=== PATIENT | female | born 1955 | race Caucasian/White ===

== ENCOUNTER 2016-04-15 23:05 | Emergency (ER) | payer BC ==
--- NOTE | 2016-04-15 23:30 | ED.PDOC ---
History of Present Illness - General Chief Complaint: Fever Stated Complaint: flu pain Time Seen by Provider: 04/15/16 23:12 Source: patient, RN notes reviewed Exam Limitations: no limitations - History of Present Illness Initial Comments: She stated had nasal congestion and dry cough which started yesterday then with flu like symptoms tonight. Timing/Duration: 24 hours Severity: moderate Improving Factors: nothing Worsening Factors: nothing Allergies/Adverse Reactions: Allergies NO KNOWN ALLERGY Allergy (Verified 04/15/16 23:12) Home Medications: Ambulatory Orders Albuterol Inhaler [Ventolin Hfa Inhaler] 108 mcg IN QID PRN #1 inh 04/16/16 Azithromycin [Zithromax Z-Almas] 1 ea PO DAILY #1 pack 04/16/16 Benzonatate Perles [Tessalon Perles] 200 mg PO BID #30 cap 04/16/16 Review of Systems - Review of Systems Constitutional: States: see HPI, other - flu like symptoms EENTM: States: nose congestion Respiratory: States: cough Cardiology: States: no symptoms reported Gastrointestinal/Abdominal: States: no symptoms reported Genitourinary: States: no symptoms reported Musculoskeletal: States: no symptoms reported Skin: States: no symptoms reported Neurological: States: no symptoms reported Endocrine: States: no symptoms reported Hematologic/Lymphatic: States: no symptoms reported Past Medical History (General) - Patient Medical History Hx Seizures: No Hx Dementia: No Hx Asthma: No Hx of COPD: Yes Hx Cardiac Disorders: No Hx Congestive Heart Failure: No Hx Hypertension: No Hx Diabetes: No Surgical History: other - hysterectomy - Vaccination History Hx Influenza Vaccination: No Hx Pneumococcal Vaccination: No - Social History Hx Tobacco Use: Yes Cigarettes Packs Per Day: 2 - Activities of Daily Living Patient Lives Alone: No - family Family Medical History - Family History Mother Family History: Unknown Hx Family Stroke: Yes - dad Hx Cardiac Disease: Yes - mom Physical Exam - Physical Exam General Appearance: Alert, No apparent distress Ears, Nose, Throat: hearing grossly normal, normal ENT inspection, nasal congestion Neck: non-tender, full range of motion, supple, normal inspection Respiratory: chest non-tender, no respiratory distress, no accessory muscle use , wheezing Cardiovascular/Chest: regular rate, rhythm, no gallop, no JVD, no murmur Gastrointestinal/Abdominal: normal bowel sounds, non tender, soft, no organomegaly Back Exam: normal inspection, no CVA tenderness, no vertebral tenderness Neurologic: alert, normal mood/affect, oriented x 3 Skin Exam: normal color, warm/dry Lymphatic: no adenopathy Departure - Departure Clinical Impression: Bronchitis, acute Qualifiers: Bronchitis organism: unspecified organism Qualifier Code: (J20.9) Acute bronchitis, unspecified Time of Disposition: 00:52 Disposition: Discharge to Home or Self Care Condition: Good Departure Forms: ED Discharge - Pt. Copy, Patient Portal Self Enrollment Instructions: How to Quit Smoking, Reasons to Quit Smoking, Nicotine Replacement Therapy for Smoking Cessation During Prescriptions: Benzonatate Perles [Tessalon Perles] 200 mg PO BID #30 cap Albuterol Inhaler [Ventolin Hfa Inhaler] 108 mcg IN QID PRN #1 inh PRN Reason: Wheezing Azithromycin [Zithromax Z-Almas] 1 ea PO DAILY #1 pack Home Medications: Ambulatory Orders Albuterol Inhaler [Ventolin Hfa Inhaler] 108 mcg IN QID PRN #1 inh 04/16/16 Azithromycin [Zithromax Z-Almas] 1 ea PO DAILY #1 pack 04/16/16 Benzonatate Perles [Tessalon Perles] 200 mg PO BID #30 cap 04/16/16
--- NOTE | 2016-04-15 23:56 | RAD ---
PROCEDURE: Chest,2 Views CLINICAL HISTORY: cough INDICATION: Same as above COMPARISON: 05/14/2015 TECHNIQUE: PA and and lateral chest radiographs were obtained. FINDINGS: There are underlying changes of COPD There are no discrete airspace infiltrates, pneumothoraces or pleural effusions. The pulmonary vascularity is normal The cardiomediastinal silhouette is unremarkable for patient's age and sex. IMPRESSION: There is no acute pleural-parenchymal process seen in the imaged lung [place]. Underlying changes of COPD. Place of interpretation: [facility]. Electronically signed by: Olu Del Valle MD 04/15/2016 11:55 PM COMPOUND COATING MACHINE OFFBEARER
[2016-04-16] MEDS ORDERED: IPRATROPIUM/ALBUTEROL 3 ML VIAL NEB ONE (00:17)
[2016-04-16] MEDS ORDERED: AZITHROMYCIN 250 MG TAB PO ONE (00:51)
[2016-04-16] MEDS ORDERED: BENZONATATE PERLES 100 MG CAP PO ONE (00:51)
[2016-04-16] MEDS ORDERED: diphenhydrAMINE HCL 25 MG CAP PO ONE (00:51)
[2016-04-16 01:24] VITALS: O2SAT 95
[2016-04-16 01:26] VITALS: BP 155/93; TEMP 98.2
--- NOTE | 2016-05-03 23:57 | RAD ---
PROCEDURE: Chest,2 Views CLINICAL HISTORY: cough INDICATION: Same as above COMPARISON: 05/14/2015 TECHNIQUE: PA and and lateral chest radiographs were obtained. FINDINGS: There are underlying changes of COPD There are no discrete airspace infiltrates, pneumothoraces or pleural effusions. The pulmonary vascularity is normal The cardiomediastinal silhouette is unremarkable for patient's age and sex. IMPRESSION: There is no acute pleural-parenchymal process seen in the imaged lung [place]. Underlying changes of COPD. Place of interpretation: [facility]. Electronically signed by: Olu Del Valle MD 04/15/2016 11:55 PM COMPRESSION MOLDING MACHINE SETTER
== END 2016-04-16 01:23 | disposition home or self-care (01) ==
LOC: ER 23:05
DX: J20.9 Acute bronchitis, unspecified (principal); J44.9 Chronic obstructive pulmonary disease, unspecified; Z82.3 Family history of stroke; Z79.899 Other long term (current) drug therapy; F17.210 Nicotine dependence, cigarettes, uncomplicated
CPT/HCPCS: 71020; 87502; Q0144; Q0163

== ENCOUNTER 2016-11-24 00:29 | Emergency (ER) | payer BC ==
[2016-11-24] MEDS ORDERED: ONDANSETRON INJ 4 MG/2 ML VIAL IV ONE (00:32)
[2016-11-24] MEDS ORDERED: HYDROmorphone HCL INJ 2 MG/ML VIAL IV ONE ×2 (00:32→00:59)
--- NOTE | 2016-11-24 00:36 | ED.PDOC ---
History of Present Illness - General Chief Complaint: Lower Extremity Injury Stated Complaint: R lower leg injury Time Seen by Provider: 11/24/16 00:32 Source: patient, RN notes reviewed, Vital Signs reviewed, EMS Exam Limitations: no limitations - History of Present Illness Initial Comments: Patient comes in with pain and deformity R lower tib/fib/ankle. She was playing with her dog and slipped on a rug and fell. [place] a crack and sudden pain. Unable to get up/weight bear on her RLE. Denies any other injuries. Occurred: just prior to arrival Pain - Lower Extremity: severe: Right Ball, Right Ankle Method of Injury: fell Improving Factors: immobilization Worsening Factors: movement Allergies/Adverse Reactions: Allergies NO KNOWN ALLERGY Allergy (Verified 04/15/16 23:12) Home Medications: Ambulatory Orders NK [NK] 11/24/16 Review of Systems - Review of Systems Constitutional: States: no symptoms reported Respiratory: States: no symptoms reported Cardiology: States: no symptoms reported Gastrointestinal/Abdominal: States: no symptoms reported Musculoskeletal: States: see HPI Skin: States: no symptoms reported Neurological: States: numbness - toes of R foot All other Systems: No Change from Baseline Past Medical History (General) - Patient Medical History Hx Seizures: No Hx Dementia: No Hx Asthma: No Hx of COPD: Yes Hx Cardiac Disorders: No Hx Congestive Heart Failure: No Hx Hypertension: No Hx Diabetes: No - Vaccination History Hx Tetanus, Diphtheria Vaccination: No Hx Influenza Vaccination: No Hx Pneumococcal Vaccination: No - Social History Hx Tobacco Use: Yes Hx Alcohol Use: No Hx Substance Use: No Hx Substance Use Treatment: No Hx Depression: No - Female History Patient : No Family Medical History - Family History Mother Family History: Unknown Hx Family Stroke: Yes - dad Hx Cardiac Disease: Yes - mom Physical Exam - Physical Exam General Appearance: Alert, Well Developed, Well Groomed, Well Hydrated, Well Nourished, Other - In obvious pain Neck: supple, normal inspection Cardiovascular/Respiratory: regular rate, rhythm, no M/R/G, normal peripheral pulses - R foot: 2+ DP and PT pulses, normal breath sounds, no respiratory distress Thigh/Hip: normal inspection, non-tender, no evidence of injury Leg: bone tenderness - R lower tibia, deformity, limited ROM, pain, swelling Knee: normal inspection, non-tender, no evidence of injury Ankle: deformity - R distal tibia/ankle, limited ROM, pain, soft tissue tenderness, swelling Foot: normal inspection, non-tender, no evidence of injury Neuro/Tendon: normal motor functions, normal tendon functions, sensory deficit - decreased sensation to light touch all toes. Mental Status: alert, oriented x 3 Skin: normal color, warm/dry Progress - Progress Progress: 11/24/16 01:08 Pt now c/o pain that feels like a gas bubble in her L lower chest. + tender to palpation. No LUQ abd tenderness. Mother in her early 60's due to ME. Will get EKG. Still having pain after Dilaudid 1mg IV. Will give another 0.5mg. 11/24/16 01:33 Attempted to get a hold of Monique Vasquez. No response after 30 minutes. Will transfer to [facility] in [place]. Called Transfer line. Awaiting call back from Ortho. 11/24/16 01:[address] Davis who accepted patient in transfer. - Results/Orders Results/Orders: Laboratory Tests 11/24/16 11/24/16 11/24/16 00:50 00:50 01:10 WBC 12.6 H RBC 4.76 Hgb 14.4 Hct 43.0 MCV 90.3 MCH 30.3 MCHC 33.5 RDW 13.5 Plt Count 198 MPV 8.3 Absolute Neuts (auto) 8.00 H Absolute Lymphs (auto) 3.60 H Absolute Monos (auto) 0.60 Absolute Eos (auto) 0.30 Absolute Basos (auto) 0.10 Neutrophils % 63.5 Lymphocytes % 28.4 Monocytes % 4.6 Eosinophils % 2.7 Basophils % 0.8 Sodium 139 Potassium 3.8 Chloride 105 Carbon Dioxide 27 Anion Gap 10.8 L BUN 17 Creatinine 0.56 L BUN/Creatinine Ratio 30.4 H Random Glucose 160 H Serum Osmolality 282.5 Calcium 9.3 Total Bilirubin 0.3 AST 18 ALT 14 Alkaline Phosphatase 62 Creatine Kinase 93 CK-MB (CK-2) 3.1 CK-MB (CK-2) % Not Reportable Troponin I 0.04 Serum Total Protein 6.9 Albumin 3.8 Globulin 3.1 Albumin/Globulin Ratio 1.2 - EKG/XRAY/CT EKG: Sinus, nonspecific ST T wave Chg Comments: Rate 87, no old EKG for comparison Xray Comments: R Tib/Fib: Displaced and comminuted fractures of distal tibia & fibula -Rad Departure - Departure Clinical Impression: Tibia/fibula fracture, shaft Qualifiers: Encounter type: initial encounter Fracture type: closed Laterality: right Qualified Code(s): S82.201A - Unspecified fracture of shaft of right tibia, initial encounter for closed fracture; S82.401A - Unspecified fracture of shaft of right fibula, initial encounter for closed fracture Time of Disposition: 02:13 Disposition: Transfer to Hospital Condition: Good Referrals: Coy Simpson MD [Primary Care Provider] - 1-2 Weeks Home Medications: Ambulatory Orders NK [NK] 11/24/16 Transfer to Outside Facility - Transfer Information Accepting Provider:: Dr. Davis Accepting Facility: [facility] Reason for Transfer: required specialist not available
[2016-11-24] MEDS ORDERED: NICOTINE PATCH 14 MG TD ONE (00:59)
--- NOTE | 2016-11-24 01:07 | RAD ---
EXAM: Two view(s) of the right ankle. INDICATION: Pain. COMPARISON: None. FINDINGS: The bones are demineralized. There are displaced and comminuted fractures involving the distal tibia and fibula. The tibiotalar joint appears intact. There is soft tissue swelling around the fracture site. IMPRESSION: Displaced and comminuted fractures involving the distal tibia and fibula Electronically signed by: Dayo Euceda MD 11/24/2016 1:05 AM CDT Workstation: [id number]
--- NOTE | 2016-11-24 01:07 | RAD ---
EXAM: Two view(s) of the right tibia-fibula. INDICATION: Pain. COMPARISON: None. FINDINGS: There are displaced and comminuted fractures involving the distal tibia and fibula. There is soft tissue swelling around the fracture sites. IMPRESSION: Displaced and comminuted fractures involving the distal tibia and fibula. Electronically signed by: Dayo Euceda MD 11/24/2016 1:06 AM CDT Workstation: [id number]
[2016-11-24] MEDS ORDERED: SODIUM CHLORIDE 0.9% 1000ML 1,000 ML IVS ONE (01:31)
[2016-11-24] MEDS ORDERED: fentaNYL CITRATE INJ 50 MCG/ML AMP IV ONE (01:50)
[2016-11-24 02:28] VITALS: BP 174/92; TEMP 98.2; O2SAT 96
== END 2016-11-24 02:27 | disposition short-term general hospital (02) ==
LOC: ER 00:29
DX: S82.201A Unspecified fracture of shaft of right tibia, initial encounter for closed fracture (principal); S82.401A Unspecified fracture of shaft of right fibula, initial encounter for closed fracture; J44.9 Chronic obstructive pulmonary disease, unspecified; R07.9 Chest pain, unspecified; Z82.49 Family history of ischemic heart disease and other diseases of the circulatory system; W01.0XXA Fall on same level from slipping, tripping and stumbling without subsequent striking against object, initial encounter; Y92.9 Unspecified place or not applicable
CPT/HCPCS: 36415; 73590; 73600; 80053; 82550; 82553; 84484; 85025; 93005; J1170; J2405; J3010; J7030

== ENCOUNTER 2017-07-04 06:57 | Emergency (ER) | payer BC ==
[2017-07-04 07:39] VITALS: TEMP 98.4
--- NOTE | 2017-07-04 07:47 | ED.PDOC ---
History of Present Illness - General Chief Complaint: Problem Stated Complaint: left flank pain Time Seen by Provider: 07/04/17 07:31 Source: patient Exam Limitations: no limitations - History of Present Illness Initial Comments: Celsa Abraham 61 y/o female stated that she had left sided burning abdominal pain on and off for the last one week not related to eating no nausea vomiting had regular BM,no diarrhea or noticed blood in urine.Stated had kind stone surgery on her left side 3 years ago.Denies fever/chills.Symptoms getting constant decided to get checked. Timing/Duration: week Quality: burning Radiation: left flank Activites at Onset: none Prior abdominal problems: none Sexual intercourse history: single partner Improving Factors: nothing Worsening Factors: nothing Allergies/Adverse Reactions: Allergies NO KNOWN ALLERGY Allergy (Verified 04/15/16 23:12) Home Medications: Ambulatory Orders Acetamin W/Cod #3 Tab [Tylenol w/CODEINE #3] 1 ea PO Q4HR PRN #14 tab 07/04/17 Sulfa/Trimeth 800/160 (Ds) Tab [Bactrim DS] 1 tablet PO BID #14 tab 07/04/17 Tamsulosin [Flomax] 0.4 mg PO QDPC #7 cap 07/04/17 Review of Systems - Review of Systems Constitutional: States: no symptoms reported EENTM: States: no symptoms reported Respiratory: States: no symptoms reported Cardiology: States: no symptoms reported Gastrointestinal/Abdominal: States: no symptoms reported Genitourinary: States: see HPI All other Systems: Reviewed and Negative, No Change from Baseline Past Medical History (General) - Patient Medical History Hx Seizures: No Hx Stroke: No Hx Dementia: No Hx Asthma: Yes Hx of COPD: Yes Hx Cardiac Disorders: No Hx Congestive Heart Failure: No Hx Hypertension: No Hx Diabetes: No Hx Gastroesophageal Reflux: No Hx Renal Disease: Yes Surgical History: other - hysterectomy - Vaccination History Hx Tetanus, Diphtheria Vaccination: No Hx Influenza Vaccination: No Hx Pneumococcal Vaccination: No - Social History Hx Tobacco Use: Yes Hx Alcohol Use: No Hx Substance Use: No Hx Substance Use Treatment: No Hx Depression: No Hx Physical Abuse: No Hx Emotional Abuse: No - Activities of Daily Living Grooming Ability: Independent Eating (Feeding) Ability: Independent Toileting Ability: Independent - Female History Patient : No Family Medical History - Family History Mother Family History: Unknown Hx Family Stroke: Yes - dad Hx Cardiac Disease: Yes - mom Physical Exam - Physical Exam General Appearance: Alert, Comfortable, No apparent distress Eyes, Ears, Nose, Throat Exam: normal ENT inspection, TMs normal Neck: non-tender, supple Cardiovascular/Respiratory: regular rate, rhythm, no M/R/G, normal peripheral pulses, normal breath sounds Gastrointestinal/Abdominal: normal bowel sounds, non tender, soft, no organomegaly Back Exam: normal inspection, no CVA tenderness, no vertebral tenderness Extremity: no pedal edema, no calf tenderness Neurologic: alert, oriented x 3 Progress - Progress Progress: 07/04/17 07:51 Vital Signs - 8 hr 07/04/17 07:12 Temperature 98.4 F Pulse Rate [ 126 H left brachial] Respiratory 18 Rate Blood Pressure 148/103 [left brachial] O2 Sat by Pulse 92 L Oximetry - Results/Orders Results/Orders: 07/04/17 08:08 IV Care:Saline Lock per Protoc QSHIFT 07/04/17 08:41 cefTRIAXone SODIUM [Rocephin] 1 gm Sodium Chl 0.9% 50Ml Min-Bag+ [NS 50ml MINI -BAG+] 50 ml IVPB ONCE 07/04/17 08:45 Be Our Guest Tray (BOG) ONCE Laboratory Results - last 24 hr 07/04/17 07/04/17 07/04/17 07:20 08:18 08:18 WBC 12.4 H RBC 5.01 Hgb 14.8 Hct 43.9 MCV 87.5 MCH 29.5 MCHC 33.8 RDW 14.3 Plt Count 178 MPV 8.1 Absolute Neuts (auto) 9.50 H Absolute Lymphs (auto) 1.60 Absolute Monos (auto) 0.90 H Absolute Eos (auto) 0.40 Absolute Basos (auto) 0.10 Neutrophils % 76.3 Lymphocytes % 13.0 L Monocytes % 6.9 Eosinophils % 2.9 Basophils % 0.9 Sodium 141 Potassium 4.3 Chloride 105 Carbon Dioxide 28 Anion Gap 12.3 BUN 25 H Creatinine 1.05 BUN/Creatinine Ratio 23.8 H Random Glucose 171 H Serum Osmolality 289.7 Calcium 9.3 Total Bilirubin 0.8 AST 17 ALT 13 Alkaline Phosphatase 71 Serum Total Protein 7.8 Albumin 4.1 Globulin 3.7 H Albumin/Globulin Ratio 1.1 Lipase 37 Urine Color Yellow Urine Appearance Clear Urine pH 5.0 Ur Specific [place] >= 1.030 Urine Protein Trace Urine Glucose (UA) 100 H Urine Ketones Negative Urine Blood Moderate H Urine Nitrite Negative Urine Bilirubin Small H Urine Urobilinogen 0.2 Ur Leukocyte Esterase Negative Urine RBC QNS Urine WBC QNS Ur Epithelial Cells QNS Urine Bacteria QNS - EKG/XRAY/CT CT Ordered: Yes - abd/p-6 mm urereterolithtiasis mid ureteter left Departure - Departure Clinical Impression: Left flank pain, Ureteral calculus, left Time of Disposition: 09:08 Disposition: Discharge to Home or Self Care Condition: Fair Departure Forms: ED Discharge - Pt. Copy, Patient Portal Self Enrollment Instructions: DI for Kidney Stones Diet: other - Drink extra fluids Referrals: Coy Simpson MD [Primary Care Provider] - 1-2 Weeks Prescriptions: Acetamin W/Cod #3 Tab [Tylenol w/CODEINE #3] 1 ea PO Q4HR PRN #14 tab PRN Reason: Pain Sulfa/Trimeth 800/160 (Ds) Tab [Bactrim DS] 1 tablet PO BID #14 tab Tamsulosin [Flomax] 0.4 mg PO QDPC #7 cap Home Medications: Ambulatory Orders Acetamin W/Cod #3 Tab [Tylenol w/CODEINE #3] 1 ea PO Q4HR PRN #14 tab 07/04/17 Sulfa/Trimeth 800/160 (Ds) Tab [Bactrim DS] 1 tablet PO BID #14 tab 07/04/17 Tamsulosin [Flomax] 0.4 mg PO QDPC #7 cap 07/04/17 Additional Instructions: Follow up with primary Md 05 July 2017 for Urologist Referral May take ALEVE( OTC) @ tablets by mouth am/pm with tylenol-3 for pain as needed
[2017-07-04] MEDS ORDERED: SODIUM CHLORIDE 0.9% 1000ML 1,000 ML IVS ONE ×2 (07:52→08:08)
[2017-07-04] MEDS ORDERED: KETOROLAC TROMETHAMINE INJ 30 MG/ML VIAL IV ONE (07:53)
--- NOTE | 2017-07-04 08:31 | CT ---
PROCEDURE: Abdoment/Pelvis w/o Contrast HISTORY: flank pain/history of nephrolithiasis left Indication: Same as above Comparison: 10/04/2013 Technique: CT of the abdomen and pelvis was done without intravenous contrast. Images were obtained from the lung base to the level of the pubic symphysis in axial plane, followed by orthogonal sagittal and coronal reconstruction. Oral contrast was not given for the study. This exam was performed according to our departmental dose-optimization program, which includes automated exposure control, adjustment of the mA and/or KV according to the patient's size and/or use of iterative reconstruction technique. FINDINGS: Images through the lung bases do not show any focal infiltrates or pleural effusions The urinary bladder is decompressed. There is left-sided hydroureteronephrosis to the level of 6 mm calculus seen in the mid left pelvic ureter. Mild postobstructive stranding is seen around the left kidney. There is no nephrolithiasis on either side. There is no right-sided hydroureteronephrosis There is cholelithiasis. The liver, pancreas, spleen and the bilateral adrenal glands appear unremarkable, given the limitation of lack of intravenous contrast.. The small bowel appears unremarkable, without any evidence of small bowel obstruction or bowel wall thickening. There is no CT evidence of acute appendicitis, pericecal inflammatory change or ileocecal mesenteric adenitis. The ileocecal junction appears unremarkable. There is no CT evidence of acute colonic diverticulitis or colitis or large bowel obstruction. There is no pathological lymphadenopathy in the retroperitoneum or in the pelvic region. There is no evidence of free fluid or free air in the abdomen or the pelvic region. There is no clinically significant abdominal aortic aneurysm. The uterus is surgically absent There is a tiny fat-containing periumbilical ventral hernia defect The visualized lumbar spine shows minimal degenerative change. The paravertebral soft tissues are unremarkable. The remainder of the pelvic structures are unremarkable. IMPRESSION: There is left-sided hydroureteronephrosis to the level of 6 mm calculus seen in the mid left pelvic ureter. Mild postobstructive stranding is seen around the left kidney. There is no nephrolithiasis on either side. There is no right-sided hydroureteronephrosis There is cholelithiasis. Electronically signed by: Olu Del Valle MD 07/04/2017 8:30 AM CDT Workstation: [id number]
[2017-07-04] MEDS ORDERED: HYDROcodone 10MG/APAP 325MG 1 EA TAB PO ONE (08:34)
[2017-07-04] MEDS ORDERED: TAMSULOSIN 0.4 MG CAP PO ONE (08:34)
[2017-07-04] MEDS ORDERED: cefTRIAXone SODIUM 1 GM in SODIUM CHL 0.9% 50ML MIN-BAG+ 50 ML IVPB ONE (08:41)
[2017-07-04] MEDS ORDERED: SODIUM CHL 0.9% 50ML MIN-BAG+ 50 ML IVPB ONE (09:18)
[2017-07-04] MEDS ORDERED: cefTRIAXone SODIUM 1 GM VIAL ONE (09:18)
[2017-07-04 10:32] VITALS: BP 129/83; O2SAT 95
== END 2017-07-04 10:32 | disposition home or self-care (01) ==
LOC: ER 06:57
DX: N13.2 Hydronephrosis with renal and ureteral calculous obstruction (principal); J44.9 Chronic obstructive pulmonary disease, unspecified; Z87.891 Personal history of nicotine dependence
CPT/HCPCS: 36415; 74176; 80053; 81001; 83690; 85025; J0696; J1885; J7030; J7050

== ENCOUNTER 2020-02-09 13:58 | Emergency (ER) | payer SELFPAY | END 2020-02-09 17:34 | disposition left against medical advice (07) | LOC: ER 13:58 | DX: M54.5 Low back pain (principal); Z53.21 Procedure and treatment not carried out due to patient leaving prior to being seen by health care provider ==

== ENCOUNTER 2020-02-09 21:46 | Emergency (ER) | payer SELFPAY ==
[2020-02-09] MEDS ORDERED: KETOROLAC TROMETHAMINE INJ 30 MG/ML VIAL IV ONE (21:49)
[2020-02-09] MEDS ORDERED: SODIUM CHLORIDE 0.9% (FLUSH) 10 ML SYG IV PRN (21:49)
[2020-02-09] MEDS ORDERED: ONDANSETRON INJ 4 MG/2 ML VIAL IV ONE (21:49)
[2020-02-09] MEDS ORDERED: SODIUM CHLORIDE 0.9% 1000ML 1,000 ML IVS ONE ×2 (21:50→23:06)
--- NOTE | 2020-02-09 21:51 | ED.PDOC ---
History of Present Illness - General Time Seen by Provider: 02/09/20 21:48 Source: patient - History of Present Illness Initial Comments: 64 yo female with PMH of kidney stones who presents with cc of Right lower back/flank pain. Initial onset 2 days ago but was reported to be mild in nature and went away. The pain returned this morning around 11 AM, rapidly worsened, became constant, sharp, 10/10 severity, radiates around to RLQ, no change with position changes, no known exacerbating factors. She reported associated nausea with 3 episodes of nonbloody nonbilious emesis. She was worried about kidney stone so she presented to the ED earlier this afternoon. However the ED was full and she waited for a couple of hours without being seen so she went home and took some Tylenol 3 which improved her pain to now 3/10 severity but returned since the pain had not resolved. She reported some dark brown urination earlier. Denies any fevers, chills, hematuria, diarrhea, chest pain, sore throat. She does report chronic intermittent dry cough and dyspnea due to COPD which is unchanged from usual currently. Reports history of kidney stones x2 in the past. The most recent episode was in 2018. She reports both episodes required urological/surgical intervention. Allergies/Adverse Reactions: Allergies NO KNOWN ALLERGY Allergy (Verified 04/15/16 23:12) Home Medications: Ambulatory Orders Acetamin W/Cod #3 Tab [Tylenol w/CODEINE #3] 1 ea PO Q4HR PRN #14 tab 07/04/17 Sulfa/Trimeth 800/160 (Ds) Tab [Bactrim DS] 1 tablet PO BID #14 tab 07/04/17 Tamsulosin [Flomax] 0.4 mg PO QDPC #7 cap 07/04/17 Acetamin W/Cod #3 Tab [Tylenol w/CODEINE #3] 1 ea PO Q6H PRN 5 Days #10 tab 02/10/20 Ciprofloxacin HCl [Ciprofloxacin Hydrochlori] 500 mg PO BID 7 Days #14 tab 02/10/20 Ondansetron Odt [Zofran ODT] 8 mg PO Q8H PRN 5 Days #10 tab 02/10/20 Tamsulosin HCl [Flomax] 0.4 mg PO DAILY 7 Days #7 cap 02/10/20 Review of Systems - Review of Systems Review of Systems: 02/09/20 21:51 as per HPI All other Systems: Reviewed and Negative Past Medical History (General) - Patient Medical History Hx Seizures: No Hx Stroke: No Hx Dementia: No Hx Asthma: Yes Hx of COPD: Yes Hx Cardiac Disorders: No Hx Congestive Heart Failure: No Hx Hypertension: No Hx Diabetes: No Hx Gastroesophageal Reflux: No Hx Renal Disease: Yes - Vaccination History Hx Tetanus, Diphtheria Vaccination: No Hx Influenza Vaccination: No Hx Pneumococcal Vaccination: No - Social History Hx Tobacco Use: Yes Hx Alcohol Use: No Hx Substance Use: No Hx Substance Use Treatment: No Hx Depression: No Hx Physical Abuse: No Hx Emotional Abuse: No - Female History Patient : No Family Medical History - Family History Mother Family History: Unknown Hx Family Stroke: Yes - dad Hx Cardiac Disease: Yes - mom Physical Exam - Physical Exam General Appearance: Alert, No apparent distress Eye Exam: bilateral normal Ears, Nose, Throat: hearing grossly normal, normal ENT inspection Neck: non-tender, full range of motion, supple, normal inspection Respiratory: chest non-tender, lungs clear, normal breath sounds, no respiratory distress, no accessory muscle use Cardiovascular/Chest: normal peripheral pulses, no edema, no gallop, no JVD, no murmur, tachycardia Peripheral Pulses: radial,right: 2+, radial,left: 2+ Gastrointestinal/Abdominal: soft, no organomegaly, tenderness - mild to RLQ w/o rebound or guarding Back Exam: normal inspection, no vertebral tenderness, CVA tenderness (R) - moderate to R lower flank region Extremity: normal range of motion, non-tender, normal inspection, no pedal edema, no calf tenderness Neurologic: clay digger II-XII nml as tested, no motor/sensory deficits, alert, normal mood/affect, oriented x 3 Skin Exam: normal color, warm/dry Progress - Progress Progress: 02/09/20 22:05 Right flank pain -Consider UTI, kidney stone, pyelonephritis most likely. Consider also to acute appendicitis, sepsis, intra-abdominal abscess, colitis, gastroenteritis, other -Patient with tachycardia and elevated blood pressure 200s/100s on arrival, otherwise vitals stable, patient in no acute distress -Obtain stat sepsis work-up, UA -Place PIV, 1 L normal saline bolus, Toradol 30 mg IV, Zofran 4 mg IV -Plan for CT imaging of the abdomen and pelvis 02/10/20 00:45 -Patient has remained stable. Her tachycardia is resolved and her blood pressure is now improved to 160s/100. She reports her pain is resolved as well. -Labs revealed large blood in the urine. Serum WBC elevated to 17,000 with left shift and no bands. Lactate 1.6. BUN 22, Cr 0.7. Serum glucose 252 - pt advised to f/u with PCP for further diabetic testing/treatment. Remainder of labs pretty unremarkable. -CT imaging revealed 2 mm stone in the proximal right ureter with associated mild hydroureteronephrosis and some stranding around the kidney. No other acute processes noted. Gallstones noted w/o evidence of acute cholecystitis. -Discussed all findings and diagnosis of right ureteral stone and acute urinary tract infection/pyelonephritis. Given the small size of the stone, I suspect patient has a very good chance of stone passage with outpatient medical man agement. Given Rocephin 1 g IV and Flomax 0.4 mg p.o. in the ED. Will give prescription for Cipro 500 mg p.o. twice daily for 7 days, Tylenol 3, Zofran, Flomax. -Discharged home in good condition, return warnings discussed at length Hitesh Marcos MD Billing #[id number] 02/09/20 21:49 IV Care:Saline Lock per Protoc QSHIFT Sodium Chloride 0.9% (Flush) [Saline Flush Syringe] 10 ml IV PRN PRN 02/09/20 23:26 BLOOD CULTURE Stat Laboratory Results - last 24 hr 02/09/20 02/09/20 02/09/20 22:15 22:15 22:15 WBC 17.7 H RBC 5.17 Hgb 15.1 Hct 44.1 MCV 85.4 MCH 29.3 MCHC 34.3 RDW 14.4 Plt Count 191 MPV 8.3 Absolute Neuts (auto) 15.60 H Absolute Lymphs (auto) 1.40 Absolute Monos (auto) 0.50 Absolute Eos (auto) 0.00 Absolute Basos (auto) 0.10 Neutrophils % 88.2 H Lymphocytes % 8.1 L Monocytes % 2.9 Eosinophils % 0.1 L Basophils % 0.7 Sodium 137 Potassium 4.1 Chloride 100 L Carbon Dioxide 25 Anion Gap 16.1 BUN 22 H Creatinine 0.73 BUN/Creatinine Ratio 30.1 H Random Glucose 252 H Serum Osmolality 285.7 Lactic Acid Calcium 8.9 Total Bilirubin 0.6 Direct Bilirubin 0.1 Indirect Bilirubin 0.5 AST 19 ALT 22 Alkaline Phosphatase 77 Serum Total Protein 8.1 Albumin 4.1 Lipase 83 H Serum HCG, Qual Negative Urine Color Urine Appearance Urine pH Ur Specific [place] Urine Protein Urine Glucose (UA) Urine Ketones Urine Blood Urine Nitrite Urine Bilirubin Urine Urobilinogen Ur Leukocyte Esterase Urine RBC Urine WBC Ur Epithelial Cells Amorphous Sediment Urine Bacteria Urine Mucus 02/09/20 02/09/20 22:15 22:15 WBC RBC Hgb Hct MCV MCH MCHC RDW Plt Count MPV Absolute Neuts (auto) Absolute Lymphs (auto) Absolute Monos (auto) Absolute Eos (auto) Absolute Basos (auto) Neutrophils % Lymphocytes % Monocytes % Eosinophils % Basophils % Sodium Potassium Chloride Carbon Dioxide Anion Gap BUN Creatinine BUN/Creatinine Ratio Random Glucose Serum Osmolality Lactic Acid 1.6 Calcium Total Bilirubin Direct Bilirubin Indirect Bilirubin AST ALT Alkaline Phosphatase Serum Total Protein Albumin Lipase Serum HCG, Qual Urine Color Yellow Urine Appearance Sl cloudy Urine pH 5.5 Ur Specific [place] >= 1.030 Urine Protein 30 Urine Glucose (UA) 100 H Urine Ketones Negative Urine Blood Large H Urine Nitrite Negative Urine Bilirubin Small H Urine Urobilinogen 1.0 Ur Leukocyte Esterase Negative Urine RBC >50 H Urine WBC 3-5 H Ur Epithelial Cells 1-3 Amorphous Sediment Trace Urine Bacteria 0 Urine Mucus Trace - EKG/XRAY/CT EKG: Sinus, Tachy - Sinus tachycardia, heart rate 100, no ST elevations or Q waves noted, nonspecific T wave inversions noted in aVL, axis normal, intervals normal, compared to 11/24/2016 EKG sinus tachycardia appears new Departure - Departure Clinical Impression: Ureterolithiasis, Hyperglycemia UTI (urinary tract infection) Qualifiers: Urinary tract infection type: acute pyelonephritis Qualified Code(s): N10 - Acu te pyelonephritis Time of Disposition: 00:41 Disposition: Discharge to Home or Self Care Condition: Fair Instructions: Kidney Stones (DC), Urinary Tract Infection, Adult (DC) Diet: resume usual diet Activity: increase activity as tolerated Referrals: Coy Simpson MD [Primary Care Provider] - 1-2 Weeks Prescriptions: Ciprofloxacin HCl [Ciprofloxacin Hydrochlori] 500 mg PO BID 7 Days #14 tab Tamsulosin HCl [Flomax] 0.4 mg PO DAILY 7 Days #7 cap Acetamin W/Cod #3 Tab [Tylenol w/CODEINE #3] 1 ea PO Q6H PRN 5 Days #10 tab PRN Reason: Pain Ondansetron Odt [Zofran ODT] 8 mg PO Q8H PRN 5 Days #10 tab PRN Reason: Nausea Home Medications: Ambulatory Orders Acetamin W/Cod #3 Tab [Tylenol w/CODEINE #3] 1 ea PO Q4HR PRN #14 tab 07/04/17 Sulfa/Trimeth 800/160 (Ds) Tab [Bactrim DS] 1 tablet PO BID #14 tab 07/04/17 Tamsulosin [Flomax] 0.4 mg PO QDPC #7 cap 07/04/17 Acetamin W/Cod #3 Tab [Tylenol w/CODEINE #3] 1 ea PO Q6H PRN 5 Days #10 tab 02/10/20 Ciprofloxacin HCl [Ciprofloxacin Hydrochlori] 500 mg PO BID 7 Days #14 tab 02/10/20 Ondansetron Odt [Zofran ODT] 8 mg PO Q8H PRN 5 Days #10 tab 02/10/20 Tamsulosin HCl [Flomax] 0.4 mg PO DAILY 7 Days #7 cap 02/10/20 Additional Instructions: Take the antibiotics and Flomax as directed. Remain well-hydrated and gradually advance your diet and activity level as tolerated. Continue taking [id number] medications for pain and inflammation control such as Tylenol 650 mg every 6 hours as needed and ibuprofen 600 mg every 6 hours as needed. You may take the Tylenol No. 3 as directed for breakthrough pain but do not drive or operate heavy machinery while taking. Return the ED if you develop worsening of symptoms or other concerning symptoms. Follow-up with your primary care physician is recommended in the next 1 to 2 weeks for repeat evaluation or sooner as needed.
[2020-02-09 22:36] VITALS: TEMP 98.1
--- NOTE | 2020-02-09 23:23 | CT ---
EXAM DESCRIPTION: Abdoment/Pelvis w/o Contrast CLINICAL HISTORY: 64 years Female R flank pain, hx of kidney stones COMPARISON: None TECHNIQUE: Multiple contiguous axial CT slices were taken from the diaphragms to the pubic symphysis without intravenous contrast. This exam was performed according to our departmental dose-optimization program, which includes automated exposure control, adjustment of the mA and/or kV according to patient size and/or use of iterative reconstruction technique. FINDINGS: The lung bases are clear. Visualized cardiomediastinal structures are normal. No focal hepatic lesions. Cholelithiasis. The bile ducts, pancreas, spleen and adrenals are normal. 2 mm right ureteropelvic junction stone with some surrounding fat stranding and some adjacent mild hydroureter nephrosis. Small 1 mm right mid pole calyceal stone. Scattered small right renal cysts. Chronic right renal cortical infarct. The left kidney is unremarkable. The left ureter is unremarkable. The bladder is decompressed. The uterus is absent. No adnexal masses. The small bowel is normal. The appendix is normal. The large bowel is normal. No ascites, pneumatosis or pneumoperitoneum. No lymphadenopathy. Atherosclerosis. There are no abdominal wall hernia defects. No destructive osseous lesions. IMPRESSION: 1. Right 2 mm ureteropelvic junction stone contributing to mild hydronephrosis and periureteral fat stranding. 2. Additional sub-2 mm right renal calyceal stone. 3. Cholelithiasis. Electronically signed by: Jonatan Moe MD 02/09/2020 11:22 PM IT GENERALIST
[2020-02-09] MEDS ORDERED: TAMSULOSIN 0.4 MG CAP PO ONE (23:26)
[2020-02-09] MEDS ORDERED: cefTRIAXone SODIUM 1 GM in SODIUM CHL 0.9% 50ML MIN-BAG+ 50 ML IVPB ONE (23:26)
[2020-02-09] MEDS ORDERED: cefTRIAXone SODIUM 1 GM VIAL ONE (23:37)
[2020-02-09] MEDS ORDERED: MORPHINE SULFATE INJ 10 MG/ML VIAL IV ONE (23:47)
[2020-02-09] MEDS ORDERED: MORPHINE SULFATE INJ 10 MG/ML VIAL ONE (23:49)
[2020-02-10] MEDS ORDERED: ONDANSETRON ODT (ER DISP) 8 MG TAB PO ONE (00:44)
[2020-02-10] MEDS ORDERED: ACETAMINOPHEN W/COD #3 TAB (ER Disp) PO ONE (00:44)
[2020-02-10 01:11] VITALS: BP 162/92; O2SAT 96
== END 2020-02-10 01:11 | disposition home or self-care (01) ==
LOC: ER 21:46
DX: N10 Acute pyelonephritis (principal); N13.2 Hydronephrosis with renal and ureteral calculous obstruction; R73.9 Hyperglycemia, unspecified; R00.0 Tachycardia, unspecified; J44.9 Chronic obstructive pulmonary disease, unspecified; N18.9 Chronic kidney disease, unspecified; Z87.442 Personal history of urinary calculi; Z79.899 Other long term (current) drug therapy; Z98.890 Other specified postprocedural states; Z87.891 Personal history of nicotine dependence
CPT/HCPCS: 74176; 80048; 80076; 81001; 83605; 83690; 84703; 85025; 87040; 93005; A4216; J0696; J1885; J2270; J2405; J7030; J7050

== ENCOUNTER 2020-02-18 17:48 | Emergency (ER) | payer SELFPAY ==
[2020-02-18] MEDS ORDERED: KETOROLAC TROMETHAMINE INJ 30 MG/ML VIAL IM ONE (18:33)
[2020-02-18] MEDS ORDERED: SODIUM CHLORIDE 0.9% 500ML 500 ML IVS ONE (18:33)
[2020-02-18] MEDS ORDERED: KETOROLAC TROMETHAMINE INJ 30 MG/ML VIAL IV ONE (18:42)
[2020-02-18 19:07] VITALS: O2SAT 95
--- NOTE | 2020-02-18 19:26 | ED.PDOC ---
History of Present Illness - General Chief Complaint: Problem Stated Complaint: right flank pain,not urinating much Time Seen by Provider: 02/18/20 17:56 Source: patient Exam Limitations: no limitations - History of Present Illness Timing/Duration: this afternoon, other - has had flank pain for a while, but trouble urinating began today Quality: moderate Onset Location: right flank Radiation: none Activites at Onset: none Sexual intercourse history: single partner Improving Factors: nothing Worsening Factors: nothing Allergies/Adverse Reactions: Allergies NO KNOWN ALLERGY Allergy (Verified 04/15/16 23:12) Home Medications: Ambulatory Orders Acetamin W/Cod #3 Tab [Tylenol w/CODEINE #3] 1 ea PO Q4HR PRN #14 tab 07/04/17 Sulfa/Trimeth 800/160 (Ds) Tab [Bactrim DS] 1 tablet PO BID #14 tab 07/04/17 Tamsulosin [Flomax] 0.4 mg PO QDPC #7 cap 07/04/17 Acetamin W/Cod #3 Tab [Tylenol w/CODEINE #3] 1 ea PO Q6H PRN 5 Days #10 tab 02/10/20 Ciprofloxacin HCl [Ciprofloxacin Hydrochlori] 500 mg PO BID 7 Days #14 tab 02/10/20 Ondansetron Odt [Zofran ODT] 8 mg PO Q8H PRN 5 Days #10 tab 02/10/20 Tamsulosin HCl [Flomax] 0.4 mg PO DAILY 7 Days #7 cap 02/10/20 Review of Systems - Review of Systems Constitutional: Denies: chills, fever EENTM: Denies: blurred vision, tearing Respiratory: Denies: cough, orthopnea Cardiology: Denies: chest pain, palpitations Gastrointestinal/Abdominal: States: other - cva tenderness right . Denies: abdominal pain, diarrhea, nausea Genitourinary: States: other - trouble urinating Musculoskeletal: Denies: gout, muscle pain, muscle stiffness Skin: Denies: change in color, lesions Endocrine: Denies: excessive sweating, flushing Hematologic/Lymphatic: Denies: anemia, blood clots Past Medical History (General) - Patient Medical History Hx Seizures: No Hx Stroke: No Hx Dementia: No Hx Asthma: Yes Hx of COPD: Yes Hx Cardiac Disorders: No Hx Congestive Heart Failure: No Hx Pacemaker: No Hx Hypertension: No Hx Thyroid Disease: No Hx Diabetes: No Hx Gastroesophageal Reflux: No Hx Renal Disease: Yes Hx Cancer: No Hx of HIV: No Hx Hepatitis C: No Hx MRSA: No Surgical History: Hysterectomy - Vaccination History Hx Tetanus, Diphtheria Vaccination: No Hx Influenza Vaccination: Yes Hx Pneumococcal Vaccination: No - Social History Hx Tobacco Use: Yes Hx Chewing Tobacco Use: No Hx Alcohol Use: No Hx Substance Use: No Hx Substance Use Treatment: No Hx Depression: No Hx Physical Abuse: No Hx Emotional Abuse: No Hx Suspected Abuse: No - Female History Patient : No Family Medical History - Family History Mother Family History: Unknown Hx Family Stroke: Yes - dad Hx Cardiac Disease: Yes - mom Physical Exam - Physical Exam General Appearance: Alert Eyes, Ears, Nose, Throat Exam: TMs normal, pharynx normal Neck: non-tender, full range of motion, supple Cardiovascular/Respiratory: regular rate, rhythm, normal peripheral pulses, no JVD, normal breath sounds, no respiratory distress, JVD, bradycardia, tachycardia Gastrointestinal/Abdominal: normal bowel sounds, non tender, soft, no organomegaly Back Exam: CVA tenderness (R) Extremity: normal range of motion, non-tender, normal inspection Neurologic: night baker II-XII nml as tested, no motor/sensory deficits, alert, normal mood/affect, oriented x 3 Skin Exam: normal color, warm/dry Lymphatic: no adenopathy Progress - EKG/XRAY/CT CT: PROCEDURE: CT Abdomen and Pelvis Without Intravenous Contrast CLINICAL IND Departure - Departure Clinical Impression: Kidney stones, Hydronephrosis Disposition: Discharge to Home or Self Care Departure Forms: ED Discharge - Pt. Copy, Patient Portal Self Enrollment Instructions: Kidney Stones in Adults, Kidney Stones (DC), Renal Colic Referrals: Coy Simpson MD [Primary Care Provider] - 1-2 Weeks Home Medications: Ambulatory Orders Acetamin W/Cod #3 Tab [Tylenol w/CODEINE #3] 1 ea PO Q4HR PRN #14 tab 07/04/17 Sulfa/Trimeth 800/160 (Ds) Tab [Bactrim DS] 1 tablet PO BID #14 tab 07/04/17 Tamsulosin [Flomax] 0.4 mg PO QDPC #7 cap 07/04/17 Acetamin W/Cod #3 Tab [Tylenol w/CODEINE #3] 1 ea PO Q6H PRN 5 Days #10 tab 02/10/20 Ciprofloxacin HCl [Ciprofloxacin Hydrochlori] 500 mg PO BID 7 Days #14 tab 02/10/20 Ondansetron Odt [Zofran ODT] 8 mg PO Q8H PRN 5 Days #10 tab 02/10/20 Tamsulosin HCl [Flomax] 0.4 mg PO DAILY 7 Days #7 cap 02/10/20 Comments: -As discussed in the emergency department today is very important that you follow-up with urology within 24 hours. -You can follow-up at the [facility] urology center located at [address] [place] [address]. phone #[phone], with a urologist of your choice. -Ensure to return to the emergency department symptoms worsen as discussed in the emergency department today You do qualify for admission and urology evaluation however because of no bed placement , you have opted to see urology outpatient. but ensure to follow-up in the ER if symptoms worsen
--- NOTE | 2020-02-18 19:36 | CT ---
PROCEDURE: CT Abdomen and Pelvis Without Intravenous Contrast CLINICAL INDICATION: The patient is 64 years old and is Female; flank pian TECHNIQUE: Axial computed tomography images of the abdomen and pelvis without intravenous contrast. Sagittal and coronal reformatted images were created and reviewed. This CT exam was performed using one or more of the following dose reduction techniques: automated exposure control, adjustment of the mA and/or kV according to patient size, and/or use of iterative reconstruction technique. DLP: 1434 mGy*cm COMPARISON: CT abdomen and pelvis dated February 09, 2020. FINDINGS: LUNG BASES: Unremarkable. No mass. No consolidation. ABDOMEN: LIVER: Unremarkable. GALLBLADDER AND BILE DUCTS: Cholelithiasis. No acute cholecystitis. No ductal dilation. PANCREAS: Unremarkable. No ductal dilation. SPLEEN: Unremarkable. No splenomegaly. ADRENALS: 8 mm left adrenal nodule. KIDNEYS AND URETERS: Previously described right ureteral stone is seen in the distal ureter and measures 3.5 cm. Continued evidence of moderate right hydronephrosis, diffuse hydroureter, enlargement of the right kidney and perinephric/periureteral stranding. Multiple subcentimeter fat-containing right renal lesions, likely angiomyolipomas. STOMACH AND BOWEL: Mild to moderate stool burden. No obstruction. No mucosal thickening. PELVIS: APPENDIX: The appendix is seen and is within normal limits. BLADDER: Bladder is decompressed. No stones. REPRODUCTIVE: Prior hysterectomy. ABDOMEN and PELVIS: INTRAPERITONEAL SPACE: Unremarkable. No free air. No significant fluid collection. BONES/JOINTS: Diffuse osteopenia. No acute fracture. No dislocation. SOFT TISSUES: Unremarkable. VASCULATURE: Atherosclerotic vascular calcifications. No abdominal aortic aneurysm. LYMPH NODES: Unremarkable. No enlarged lymph nodes. IMPRESSION: 1. Previously described right ureteral stone is seen in the distal ureter and measures 3.5 cm. Continued evidence of moderate right hydronephrosis, diffuse hydroureter, enlargement of the right kidney and perinephric/periureteral stranding. Correlate with urinalysis. Superimposed infectious process. 2. Multiple subcentimeter fat-containing right renal lesions, likely angiomyolipomas. 3. Cholelithiasis. No acute cholecystitis. 4. Mild to moderate stool burden. Correlate for constipation. Electronically signed by: Wicho Samaniego DO 02/18/2020 7:35 PM EPIC DIRECTOR
[2020-02-18 20:10] VITALS: BP 168/99; TEMP 97.6
== END 2020-02-18 20:10 | disposition home or self-care (01) ==
LOC: ER 17:48
DX: N13.2 Hydronephrosis with renal and ureteral calculous obstruction (principal); N18.9 Chronic kidney disease, unspecified; J44.9 Chronic obstructive pulmonary disease, unspecified; Z87.891 Personal history of nicotine dependence; Z79.899 Other long term (current) drug therapy
CPT/HCPCS: 36415; 74176; 80053; 81001; 85025; J1885; J7040